=== PATIENT | male | born 1965 | race Caucasian/White ===

== ENCOUNTER 2019-06-28 | Emergency (ER) | payer SELFPAY ==
[~2019-06-28] MED LIST: BABY ASPIRIN81 MG OR; LEVAQUIN500 MG OR; LORTAB 5 OR; NAPROSYN500 MG OR; ZOCOR20 MG OR
[2019-06-28 20:22] LABS: HEMATOCRIT 42.1 % (39.0-50.0); IMMATURE GRANULOCYTES 0.3 % (0.0-5.0); MEAN CELL VOLUME 87.2 fL CALC (80.0-100.0); MEAN CORPUSCULAR HGB CONC 33.3 g/L CALC (32.0-36.0); NEUT# 4.16 thou/uL (1.82-7.42); RED BLOOD COUNT 4.83 mill/uL (4.70-6.10); RED CELL DISTRI WIDTH 12.8 % (11.5-15.5)
[2019-06-28 20:27] LABS: ALBUMIN 3.8 g/dL (3.2-5.0); ALKALINE PHOSPHATASE 57 u/l (38-126); AMYLASE 48 u/l (30-110); ANION GAP 11 (6-22 (CALC)); BILIRUBIN, TOTAL 0.3 mg/dL (0.0-1.4); BUN 16 mg/dL (9-20); BUN/CREATININE RATIO 17 (12-20 (CALC)); CARBON DIOXIDE 28 mmol/l (22-30); CHLORIDE 102 mmol/l (95-108); CREATININE 0.9 mg/dL (0.7-1.3); GFR > 60 ML/MIN (>=60 (CALC)); GFR FOR AFR.AMER. > 60 ML/MIN (>=60 (CALC)); LIPASE 114 u/l (23-300); SGOT/AST 22 u/l (17-59); SODIUM 137 mmol/l (137-146); TOTAL PROTEIN 6.8 g/dL (6.3-8.2)
[2019-06-28 20:39] LABS: ACT PARTIAL THROMBO TIME 26.4 SECONDS (20.0-32.5); D-DIMER 0.17 mg/L (0.19-0.60); MYOGLOBIN 78 ng/mL (0 - 121); PROTHROMBIN TIME 10.7 SECONDS (9.0-12.5)
[2019-06-28] MEDS ORDERED: TORADOL PO (21:23)
== END 2019-06-28 21:39 | disposition home or self-care (01) | DRG 206 ==
PROVIDERS: Family Medicine
DX: M94.0 Chondrocostal junction syndrome [Tietze] (principal)